=== PATIENT | male | born 1990 | race Caucasian/White ===

== ENCOUNTER → 2022-04-11 12:36 | Outpatient (BNVA) | payer OTHER, SELFPAY | PROVIDERS: PCP Family Medicine; Visit Provider Family Medicine | DX: K21.9 Gastro-esophageal reflux disease without esophagitis (principal) | CPT/HCPCS: 86677 ==

== ENCOUNTER → 2023-11-27 11:20 | Outpatient (BNVA) | payer OTHER, SELFPAY | PROVIDERS: PCP Family Medicine; Visit Provider Family Medicine | DX: K21.9 Gastro-esophageal reflux disease without esophagitis (principal) | CPT/HCPCS: 86677 ==

== ENCOUNTER 2024-01-08 06:56 | Day surgery (SDC) | payer OTHER, SELFPAY ==
[2024-01-08 07:14] VITALS: BP 160/101; PULSE 56; RESP 18; TEMP 36.4; O2SAT 99
[2024-01-08] MEDS: sodium chloride 0.9% 1,000 ML 30 ML IV (07:23)
--- NOTE | 2024-01-08 07:59 | ANES.PREANE2 ---
Pre-Anesthetic Assessment Height/Weight: Height 1.88 m Weight 111.13 kg Temp Pulse Resp BP Pulse Ox O2 Del Method 97.6 F 56 L 18 160/101 99 Room Air 01/08/24 07:14 01/08/24 07:14 01/08/24 07:14 01/08/24 07:14 01/08/24 07:14 01/08/24 07:14 Preop Diagnosis: GERD Operation Date: 01/08/24 08:00 Proposed Procedures p EGD 32259, K21.9(Not Applicable) - Elieser Gonzalez MD Familial anesthetic complications: none Was Beta Rosa Maria taken within 24 hours: N/A Was Clonidine taken within 24 hours: N/A Last intake: Intake Last Liquid Date 01/07/24 Last Liquid Time 19:00 Last Solid Date 01/07/24 Last Solid Time 19:00 Social No alcohol and No tobacco Exam alert and oriented x 3 Airway Submandibular: within normal limits Cervical ROM: within normal limits Mallampati: Class II Dentition: full History/ROS No significant history except as noted Pulmonary None reported CV/HEM None reported None reported Hepatic None reported GI Gastroesophageal Reflux Disease Metabolic None reported Musc/skel None reported Neuropsych None reported Anesthetic Plan ASA status: 1 Anesthesia: Anesthesia Evaluation, General and MAC Risk of > 500 ml blood loss (7ml/kg in children): No Medications/Allergies Home Medications Medication Instructions Recorded Confirmed Last Taken Type famotidine 10 mg tablet (Pepcid AC) 10 mg PO BID PRN Heartburn 12/25/23 01/08/24 01/07/24 History Allergies Allergy/AdvReac Type Severity Reaction Status Date / Time penicillin V Allergy Intermediate rash Verified 12/25/23 09:28 Current Medications Generic Name Dose Route Start Last Admin Trade Name Freq PRN Reason Stop Dose Admin Sodium Chloride 1,000 mls @ 30 mls/hr 01/08/24 07:15 01/08/24 07:23 Sodium Chloride 0.9% IV 30 mls/hr .Q24H DELGADO Administration PFSH Anesthesia Family History (Updated 12/25/23 @ 09:32 by YUAN Trujillo) Mother Hypertension Social History Smoking and tobacco/nicotine status: never used tobacco/nicotine Data Anesthesia Cardiac Studies: No Data to Display
--- NOTE | 2024-01-08 08:25 | W.PM.OPSFHP ---
Same Day Surgery H&P Indication for Procedure/HPI DATE OF PROCEDURE: January 08, 2024 CHIEF COMPLAINT/INDICATIONFOR SURGICAL PROCEDURE: GERD PREOP DIAGNOSIS: GERD PLANNED PROCEDURE: Operation Date: 01/08/24 08:00 Proposed Procedures p EGD 67459, K21.9(Not Applicable) - Elieser Gonzalez MD Medications/Allergies* Home Medications Medication Instructions Recorded Confirmed Type famotidine 10 mg tablet (Pepcid AC) 10 mg PO BID PRN Heartburn 12/25/23 01/08/24 History Allergies/Adverse Reactions Allergy/AdvReac Type Severity Reaction Status Date / Time penicillin V Allergy Intermediate rash Verified 12/25/23 09:28 Current Medications: Generic Name Dose Route Start Last Admin Trade Name Freq PRN Reason Stop Dose Admin Sodium Chloride 1,000 mls @ 30 mls/hr 01/08/24 07:15 01/08/24 07:23 Sodium Chloride 0.9% IV 30 mls/hr .Q24H DELGADO Administration Pertinent History/Comorbid Conditions* Family History (Updated 12/25/23 @ 09:32 by YUAN Trujillo) Hypertension Mother Social History Smoking and tobacco/nicotine status: never used tobacco/nicotine Pertinent Exam Findings alert, oriented x 3, clear to auscultation bilaterally, regular rate & rhythm and procedure specific exam findings Abdomen soft, nt, nd Recommendations Surgery/Procedure today Coding Level of Care Code Acute Code for Chg Fwd
[2024-01-08 08:38] VITALS: BP 148/86; PULSE 80; RESP 16; TEMP 36.2; O2SAT 94
--- NOTE | 2024-01-08 08:40 | ANE.PACU2 ---
Inpatient post-anesthesia follow up: Airway intact: Yes Vital signs: Temperature 97.2 F Pulse Rate 80 Respiratory Rate 16 Blood Pressure 148/86 Pulse Oximetry 94 Oxygen Delivery Me thod Room Air Oxygen Flow Rate Fraction of Inspir ed Oxygen Hydration adequate: Yes Nausea and vomiting: No Pain level: 1 Mental status: Baseline
== END 2024-01-08 09:41 | disposition home or self-care (01) ==
PROVIDERS: PCP Family Medicine; Visit Provider Student in an Organized Health Care Education/Training Program
PROC: 0DJ08ZZ Inspection of Upper Intestinal Tract, Via Natural or Artificial Opening Endoscopic (ICD-10-PCS; CPT 43235; principal; 2024-01-08 08:00)
DX: K21.9 Gastro-esophageal reflux disease without esophagitis (principal); K29.70 Gastritis, unspecified, without bleeding
CPT/HCPCS: 43239; 88305; J2704; J7030